=== PATIENT | female | born 1945 | race Caucasian/White ===

== ENCOUNTER 2017-09-13 11:35 | Observation (INO) | payer MEDICARE ==
[~2017-09-13] VITALS: Ht 167.6 cm; Wt 70.9 kg
[2017-09-13] MEDS ORDERED: SODIUM CHLORIDE 0.9% 1,000 ML IV ONE (12:20)
[2017-09-13 12:28] VITALS: BP 118/67
[2017-09-13] MEDS ORDERED: METO25TA91 PO (12:36)
[2017-09-13] MEDS ORDERED: ATOR40TA PO (12:36)
[2017-09-13] MEDS ORDERED: ASPI-496 PO (12:36)
[2017-09-13 12:48] LABS: ANION GAP 8 mmol/L (5-15); CHLORIDE 109 mmol/L (98-107); CREATININE 0.73 mg/dL (0.55-1.02)
[2017-09-13 12:53] LABS: BASOPHILS # (AUTO) 0.03 x10^3/uL (0-0.1); BASOPHILS % (AUTO) 1 % (0-1); EOSINOPHILS # (AUTO) 0.15 x10^3/uL (0-0.4); EOSINOPHILS % (AUTO) 3 % (1-7); LYMPHOCYTES # (AUTO) 1.46 x10^3/uL (1-3.4); LYMPHOCYTES % (AUTO) 25 % (22-44); MD NO; MEAN CORPUSCULAR HEMOGLOBIN 30.9 pg (27.0-34.8); MEAN CORPUSCULAR HGB CONC 34.5 g/dL (32.4-35.8); MEAN CORPUSCULAR VOLUME 89.7 fL (80-100); MEAN PLATELET VOLUME 10.2 fL (7.4-10.4); MONOCYTES # (AUTO) 0.39 x10^3/uL (0.2-0.8); MONOCYTES % (AUTO) 7 % (2-9); NEUTROPHILS # (AUTO) 3.84 x10^3/uL (1.8-6.8); NEUTROPHILS % (AUTO) 66 % (42-75); PLATELET COUNT 179 x10^3/uL (130-400); RED BLOOD COUNT 4.83 x10^6/uL (3.82-5.3); RED CELL DISTRIBUTION WIDTH 12.9 % (9.6-15.2)
[2017-09-13] MEDS ORDERED: TICAGRELOR 90 MG TABLET ONE (13:44)
[2017-09-13] MEDS ORDERED: BIVALIRUDIN 250 MG ONE (13:45)
[2017-09-13] MEDS ORDERED: SODIUM CHLORIDE 0.9% 1,000 ML IV SCH (14:01)
[2017-09-13] MEDS ORDERED: FENTANYL PF 100 MCG/2ML ONE (14:09)
[2017-09-13] MEDS ORDERED: VERAPAMIL 2.5 MG/ML, 2ML ONE (14:09)
[2017-09-13] MEDS ORDERED: MIDAZOLAM 1 MG/ML, 2ML ONE (14:09)
[2017-09-13] MEDS ORDERED: LIDOCAINE 2%, 20ML ONE (14:10)
[2017-09-13] MEDS ORDERED: HEPARIN 1,000 UNITS/ML, 10ML ONE (14:10)
[2017-09-13] MEDS ORDERED: ACETAMINOPHEN 325 MG TABLET PO PRN (14:30)
[2017-09-13] MEDS ORDERED: ZOLPIDEM 5MG TABLET PO PRN (14:30)
[2017-09-13] MEDS ORDERED: BISACODYL 5 MG EC TABLET PO PRN (14:30)
[2017-09-13 19:00] VITALS: BP 107/74
[2017-09-13] MEDS: TICAGRELOR 90 MG TABLET PO SCH (20:55)
[2017-09-13] MEDS ORDERED: ATORVASTATIN 10 MG TABLET PO SCH (21:00)
[2017-09-14 02:53] VITALS: BP 135/78
[2017-09-14 05:33] LABS: ALBUMIN 3.5 g/dL (3.4-5.0); ANION GAP 6 mmol/L (5-15); CALCIUM 8.8 mg/dL (8.5-10.1); CHLORIDE 111 mmol/L (98-107)
[2017-09-14 07:10] VITALS: BP 116/72
[2017-09-14] MEDS ORDERED: TICA90TA PO ×2 (07:58→08:56)
[2017-09-14] MEDS: TICAGRELOR 90 MG TABLET PO SCH (08:00)
[2017-09-14] MEDS ORDERED: METOPROLOL SUCCINATE 25 MG TAB.ER.24H PO SCH (09:00)
[2017-09-14] MEDS ORDERED: ASPIRIN 81 MG TABLET EC PO SCH (09:00)
== END 2017-09-14 13:20 | disposition home or self-care (01) ==
LOC: CACL 11:35 → ORIP 14:01 → 5SO 14:34
PROVIDERS: ADMIT Internal Medicine Cardiovascular Disease; ATTEND Internal Medicine Cardiovascular Disease
DX: I25.10 Atherosclerotic heart disease of native coronary artery without angina pectoris (principal); E78.2 Mixed hyperlipidemia; Z82.49 Family history of ischemic heart disease and other diseases of the circulatory system
CPT/HCPCS: 36415; 80048; 82040; 85018; 85025; 93458; 99156; C1725; C1769; C1874; C1887; C1894; C9600; G0378; J0583; J1644; J2250; J3010; J3490; Q9967